=== PATIENT | male | born 1950 | race Caucasian/White ===

== ENCOUNTER 2017-05-02 09:16 | Emergency (ER) | payer OTHER ==
[~2017-05-02] VITALS: Ht 180.3 cm; Wt 79.4 kg
[~2017-05-02 09:16] MED LIST: KEFLEX500 MG PO; NOHOMEMEDICATIONS; NORCO 5-325 TA1 EACH PO
[2017-05-02 10:30] VITALS: BP 129/80
== END 2017-05-02 10:30 | disposition home or self-care (01) ==
LOC: ER 09:16
DX: T65.91XA Toxic effect of unspecified substance, accidental (unintentional), initial encounter (principal); T24.411A Corrosion of unspecified degree of right thigh, initial encounter; T21.4 Corrosion of unspecified degree of trunk; T32.0 Corrosions involving less than 10% of body surface; T79.9XXA Unspecified early complication of trauma, initial encounter; Y93.89 Activity, other specified; Y92.89 Other specified places as the place of occurrence of the external cause; Y99.0 Civilian activity done for income or pay; G43.909 Migraine, unspecified, not intractable, without status migrainosus; F10.10 Alcohol abuse, uncomplicated